=== PATIENT | male | born 1960 | race Caucasian/White ===

== ENCOUNTER 2021-04-04 10:52 | Inpatient (IN) | payer OTHER, SELFPAY ==
[2021-04-04] VITALS (15 sets, daily range): BP systolic 96–124; BP diastolic 68–77; PULSE 69–91; RESP 16–18; TEMP 36.4–36.5; O2SAT 97–100; BMI 24.3
--- NOTE | 2021-04-04 10:56 | XR_ITS ---
PROCEDURE: XR CHEST PORTABLE CLINICAL HISTORY: sob COMPARISON: No exams were available for comparison FINDINGS: Prior CABG. Normal heart size. There is focal increased density in the right midlung laterally. This is well-circumscribed and could represent a mass or an area of pneumonia as well something upon the patient. This measures approximately 5 cm. No acute bony abnormalities. IMPRESSION: Possible right midlung mass versus focal area of consolidation. CT may provide further evaluation. Dictated by: Iraj Cm MD 04/04/2021 11:54 Iraj Cm MD in [place] 04/04/2021 11:54
[2021-04-04 11:07] LABS: Coronavirus 19, PCR Not Detected (NotDetected); Influenza A, PCR Not Detected (NotDetected); Influenza B, PCR Not Detected (NotDetected)
[2021-04-04 11:33] LABS: Chloride 101 mmol/L (98-107); Sodium 137 mmol/L (136-145)
[2021-04-04 11:34] LABS: Potassium 3.9 mmoL/L (3.5-5.1)
[2021-04-04 11:36] LABS: Alanine Aminotransferase 48 U/L (12-78); Alkaline Phosphatase 101 U/L (38-126); Aspartate Amino Transferase 137 U/L (17-59); Bilirubin,Total 0.9 mg/dl (0.2-1.3); Blood Urea Nitrogen 25 mg/dl (9-20); Creatinine Clearance Estimated 35 mL/min (50-200); Estimated Glomerular Filt Rate 28 ml/min (>60); GFR (African American) 33 ML/MIN (>60)
[2021-04-04 11:37] LABS: Albumin Level 3.7 g/dl (3.5-5.0); Anion Gap 16.9 mEq/L (5-15); Calcium 9.2 mg/dl (8.4-10.2); Carbon Dioxide 23 mmol/L (22.0-30.0); Globulin 3.8 g/dL (1.3-3.2); Glucose 173 mg/dl (74-100); Total Protein,Serum 7.5 g/dl (6.3-8.2)
[2021-04-04 11:42] LABS: Basophils # 0.1 K/mm3 (0-0.2); Basophils % 0.7 % (0.1-2.0); Eosinophils # 0.1 K/mm3 (0.0-0.4); Eosinophils % 0.4 % (0.1-12.0); Hematocrit 46.8 % (42.0-52.0); Hemoglobin 14.9 g/dL (14.1-18.0); Lymphocytes # 0.4 K/mm3 (0.7-4.5); Mean Corpuscular HGB Conc 31.8 g/dL (31.8-35.4); Mean Corpuscular Hemoglobin 28.6 pg (27.0-31.2); Mean Platelet Volume 8.7 fl (7.4-10.4); Monocytes # 0.5 K/mm3 (0.1-1.0); Monocytes % 2.5 % (1.7-9.3); Neutrophils # 18.9 K/mm3 (1.8-7.8); Neutrophils % 94.4 % (37.0-80.0); Platelet Count 242 K/mm3 (142-424); Red Cell Distribution Width 14.2 % (11.5-17.5)
[2021-04-04 11:44] LABS: MANUAL DIFFERENTIAL MANUAL DIFFERENTIAL (MANUAL DIFF)
[2021-04-04 11:52] LABS: Hypochromasia 2+; Lymphocytes % 2 % (10-50); Monocytes % 2 % (2-9); Neutrophils % 96 % (42-76); Platelet Estimate Normal; Total Cells Counted 100
--- NOTE | 2021-04-04 11:59 | CT_ITS ---
PROCEDURE INFORMATION: Exam: CT Chest Without Contrast; Diagnostic Exam date and time: 04/04/2021 11:59 AM Age: 60 years old Clinical indication: Cough; Prior surgery; Surgery date: 6+ months; Surgery type: Cabg; Additional info: Consolidation vs mass TECHNIQUE: Imaging protocol: Diagnostic computed tomography of the chest without contrast. Radiation optimization: All CT scans at this facility use at least one of these dose optimization techniques: automated exposure control; mA and/or kV adjustment per patient size (includes targeted exams where dose is matched to clinical indication); or iterative reconstruction. COMPARISON: CR XR CHEST PORTABLE 04/04/2021 11:17 AM FINDINGS: Lungs: Calcified granuloma within the lingula. Calcified granuloma superior segment left lung base. Pleural spaces: Subtle airspace disease posterior segment right upper lobe adjacent to the major fissure likely atelectasis. Heart: Unremarkable. No cardiomegaly. No pericardial effusion. Aorta: Calcification of the aorta. Lymph nodes: Unremarkable. No enlarged lymph nodes. Liver: Severe fatty infiltration of the liver. Gallbladder and bile ducts: Surgical clips are present in the region of the gallbladder fossa. Kidneys and ureters: No renal calcifications, hydronephrosis, or hydroureter. Stomach: Fluid-filled stomach. Bones/joints: prior sternotomy. Degenerative changes are present within the spine. Soft tissues: Unremarkable. IMPRESSION: 1. Severe fatty infiltration of the liver. 2. No renal calcifications, hydronephrosis, or hydroureter. 3. Subtle airspace disease posterior segment right upper lobe adjacent to the major fissure likely atelectasis. Lungs are otherwise well aerated.
--- NOTE | 2021-04-04 12:06 | HMH.EDGENADL ---
ED Disposition Clinical Impression: Sepsis Qualifiers: Sepsis type: sepsis due to unspecified organism Sepsis acute organ dysfunction status: with acute organ dysfunction Severe sepsis acute organ dysfunction type: acute renal failure Acute renal failure type: unspecified Severe sepsis shock status: without septic shock Qualified Code(s): A41.9 - Sepsis, unspecified organism; R65.20 - Severe sepsis without septic shock; N17.9 - Acute kidney failure, unspecified UTI (urinary tract infection) Qualifiers: Urinary tract infection type: acute pyelonephritis Qualified Code(s): N10 - Acute pyelonephritis Disposition: Admitted As Inpatient Condition on Discharge: Fair Instructions: DI for Diarrhea and Traveler's Diarrhea -- Adult, DI for Diarrhea and Traveler's Diarrhea -- Child, DI for Nausea -- Adult, DI for Nausea -- Child Referrals: Provider,Referral, MD [Primary Care Provider] - Time of Disposition: 16:11 - Critical Care Critical Care Time: No Attestation: On 04/04/21, the high probability of a clinically significant, sudden or life threatening deterioration of the following system(s) required my full and direct attention, intervention and personal management. The time I documented below is in addition to time spent performing reported procedures but includes the following listed in this critical care notation. Medical Decision Making - Medical Records Medical records reviewed: Yes: I reviewed the patient's medical records. - [place]umar Inquiry Pt receiving controlled substance: No Vital Signs: 04/04/21 10:53 04/04/21 11:31 04/04/21 12:00 Temperature 97.5 F L Temperature Source Oral Pulse Rate 80 83 Pulse Rate [Left Radial] 91 H Respiratory Rate 18 Blood Pressure 100/71 L 96/70 L Blood Pressure [Right Arm] 104/69 L Blood Pressure Mean 79 75 Blood Pressure Mean [Right Arm] 80 02 Sat by Pulse Oximetry 99 99 99 Oxygen Delivery Method Room Air 04/04/21 12:30 04/04/21 13:00 04/04/21 13:30 Temperature Temperature Source Pulse Rate 73 Pulse Rate [Left Radial] Respiratory Rate 16 16 16 Blood Pressure 96/68 L 101/70 L 111/75 Blood Pressure [Right Arm] Blood Pressure Mean 76 78 83 Blood Pressure Mean [Right Arm] 02 Sat by Pulse Oximetry Oxygen Delivery Method 04/04/21 14:00 04/04/21 14:30 04/04/21 15:00 Temperature Temperature Source Pulse Rate 74 Pulse Rate [Left Radial] Respiratory Rate 16 16 16 Blood Pressure 108/77 L 115/70 117/74 Blood Pressure [Right Arm] Blood Pressure Mean 85 79 82 Blood Pressure Mean [Right Arm] 02 Sat by Pulse Oximetry Oxygen Delivery Method - Lab Data Lab results reviewed: Yes: I reviewed the patient's lab results. Lab Results 04/04/21 11:00: SARS-CoV-2 (PCR) Not detected, Influenza A Untype (PCR) Not detected, Influenza Type B (PCR) Not detected 04/04/21 11:20: WBC 20.0 H, RBC 5.20, Hgb 14.9, Hct 46.8, MCV 90.0, MCH 28.6, MCHC 31.8, RDW 14.2, Plt Count 242, MPV 8.7, Neut % (Auto) 94.4 H, Lymph % (Auto) 2.0 L, [place] % (Auto) 2.5, Eos % (Auto) 0.4, Baso % (Auto) 0.7, Neut # (Auto) 18.9 H, Lymph # (Auto) 0.4 L, [place] # (Auto) 0.5, Eos # (Auto) 0.1, Baso # (Auto) 0.1, Total Counted 100, Neutrophils % (Manual) 96 H, Lymphocytes % (Manual) 2 L, Monocytes % (Manual) 2, Platelet Estimate Normal, Hypochromasia 2+ 04/04/21 11:20: Sodium 137, Potassium 3.9, Chloride 101, Carbon Dioxide 23, Anion Gap 16.9 H, BUN 25 H, Creatinine 2.40 H, Estimated Creat Clear 35, Estimated GFR 28 L, Est GFR ( Amer) 33 L, Glucose 173 H, Calcium 9.2, Total Bilirubin 0.9, AST 137 H, ALT 48, Alkaline Phosphatase 101, Total Protein 7.5, Albumin 3.7, Globulin 3.8 H, Albumin/Globulin Ratio 1.0 L 04/04/21 12:45: Lactate 2.4 H 04/04/21 14:08: Urine Color Brown, Urine Appearance Turbid, Urine pH 5.5, Ur Specific [place] >= 1.030, Urine Protein 3+, Urine Glucose (UA) Negative, Urine Ketones Trace, Urine Blood 3+, Urine Nitrate Positive, Urine Bilirubin 2+ A
--- NOTE | 2021-04-04 12:43 | PC.NURSE ---
pt back from rad
[2021-04-04 13:06] LABS: Lactic Acid 2.4 mmol/L (0.7-2.1)
[2021-04-04 14:10] LABS: Microscopic, Urine URINE MICROSCOPIC (MICROSCOPIC)
[2021-04-04 14:15] LABS: Appearance,Urine TURBID (Clear); Blood, Urine 3+ (Negative); Color,Urine BROWN (Yellow); Glucose,Urine (UA) Negative (Negative); Ketones,Urine TRACE (Negative); Leukocyte Esterase,Urine 2+ (Negative); Nitrate,Urine POSITIVE (Negative); PH,Urine 5.5 (5.0-8.5); Protein,Urine 3+ (Negative); Specific Gravity, Urine >= 1.030 (1.005-1.030)
[2021-04-04 14:47] LABS: Bacteria,Urine 2+ /lpf; Bilirubin,Urine 2+ (Negative); RBC,Urine TNTC #/hpf (0-3); WBC,Urine 20-50 #/hpf (0-3)
--- NOTE | 2021-04-04 15:53 | P.CONPHA_ITS ---
- Pharmacy Consult Date: 04/04/21 Time: 15:54 Referring provider: DR. MERINO Reason for Consult:: VANCOMYCIN DOSING Allergies and ADEs:: Allergies Allergy/AdvReac Type Severity Reaction Status Date / Time No Known Allergies Allergy Verified 04/04/21 11:15 Home Medications:: Home Medications Medication Instructions Recorded Confirmed Type No Known Home Medications 04/04/21 04/04/21 History Height: 1.78 m Weight: 77.111 kg Laboratory Results:: Laboratory Results - last 24 hr 04/04/21 11:00: SARS-CoV-2 (PCR) Not detected, Influenza A Untype (PCR) Not detected, Influenza Type B (PCR) Not detected 04/04/21 11:20: WBC 20.0 H, RBC 5.20, Hgb 14.9, Hct 46.8, MCV 90.0, MCH 28.6, MCHC 31.8, RDW 14.2, Plt Count 242, MPV 8.7, Neut % (Auto) 94.4 H, Lymph % (Auto) 2.0 L, [place] % (Auto) 2.5, Eos % (Auto) 0.4, Baso % (Auto) 0.7, Neut # (Auto) 18.9 H, Lymph # (Auto) 0.4 L, [place] # (Auto) 0.5, Eos # (Auto) 0.1, Baso # (Auto) 0.1, Total Counted 100, Neutrophils % (Manual) 96 H, Lymphocytes % (Manual) 2 L, Monocytes % (Manual) 2, Platelet Estimate Normal, Hypochromasia 2+ 04/04/21 11:20: Sodium 137, Potassium 3.9, Chloride 101, Carbon Dioxide 23, Anion Gap 16.9 H, BUN 25 H, Creatinine 2.40 H, Estimated Creat Clear 35, Estimated GFR 28 L, Est GFR ( Amer) 33 L, Glucose 173 H, Calcium 9.2, Total Bilirubin 0.9, AST 137 H, ALT 48, Alkaline Phosphatase 101, Total Protein 7.5, Albumin 3.7, Globulin 3.8 H, Albumin/Globulin Ratio 1.0 L 04/04/21 12:45: Lactate 2.4 H 04/04/21 14:08: Urine Color Brown, Urine Appearance Turbid, Urine pH 5.5, Ur Specific [place] >= 1.030, Urine Protein 3+, Urine Glucose (UA) Negative, Urine Ketones Trace, Urine Blood 3+, Urine Nitrate Positive, Urine Bilirubin 2+ A, Urine Urobilinogen 2.0, Ur Leukocyte Esterase 2+ A, Urine RBC Tntc, Urine WBC 20-50, Ur Squamous Epith Cells None, Urine Bacteria 2+ Assessment and Plan - Assessment and plan all Dx Assessment and Plan for all problems:: Pharmacokinetic dosing service Objective: Patient: Floor: Age: 60 yo Serum creatinine: 2.40 mg/dL Height: 70.1 Inches Weight (kg): 77.1 Assessment: IBW (kg): 73.23 Dosing wt(kg): 77.1 Estimated Creatinine clearance (ml/min): 33.5 CRCL method: Cockcroft and Gault using ibw(default). Drug selected: Vancomycin Loading dose (mg): Vd (liters): 54.0 (factor used: 0.7 L/kg) Santos (hr-1): 0.032 Half life (hrs): 21.66 CLvanco=?? 1.728 L/hr Recommended dose: 1000 mg Interval: 24 hrs Infusion time (hrs): 2.0 Predicted peak (mcg/mL): 33.5 Predicted trough (mcg/mL): 16.57 Total body weight is being used for vancomycin dosing. Recommendations: Give Vancomycin 1000 mg q 24 hrs with an expected Cpeak of 33.5 mcg/ml and an expected Ctrough of 16.57 mcg/ml AUC 0-24 /EVAN Data: EVAN 0.5 mcg/mL:?? AUC/EVAN:? 1157.4 EVAN 1.0 mcg/mL:?? AUC/EVAN:? 578.7 --------- EVAN 1.5 mcg/mL:?? AUC/EVAN:? 385.8 EVAN 2.0 mcg/mL:?? AUC/EVAN:? 289.4 Thank you for the consult, will continue to follow. -FLAKO JOVEL, MAXIMED
--- NOTE | 2021-04-04 16:12 | PC.NURSE ---
DR MERINO SPOKE WITH DR WELLS FOR ADMISSION
--- NOTE | 2021-04-04 16:23 | PC.NURSE ---
HOUSE CALLED FOR BED
[2021-04-04 16:53] LABS: Reflex Lactic Add Lactic Reflex
--- NOTE | 2021-04-04 17:11 | PC.NURSE ---
Report called to Deepti KNOWLES
[2021-04-04 18:21] LABS: Lactic Acid Follow Up (RFLX 1) 0.9 mmol/L (0.7-2.1)
[2021-04-05] VITALS: BP 101/70; PULSE 75; RESP 16; TEMP 36.9; O2SAT 98
[2021-04-05 04:00] VITALS: BP 106/65; PULSE 77; RESP 18; TEMP 36.6; O2SAT 99
[2021-04-05 05:33] VITALS: BMI 29.7
--- NOTE | 2021-04-05 07:21 | HMH.HP ---
*Admission Date: 04/04/21 *Chief complaint: Weakness *History of present illness: 60-year-old male presented the hospital with 2 days of generalized weakness with some urinary hesitancy. Patient was found to have urinary tract infection and symptoms consistent with sepsis. He received sepsis bolus in the ER and has been admitted on antibiotics and IV fluids. This morning he reports he is feeling better. He does report urine has been rather dark. He has felt hot and has had chills but was unable to document any fevers [facility] History I have reviewed the patient's past medical history: Yes Medical History: Reports:: Congestive Heart Failure, Hypertension, Myocardial Infarction Denies:: Cancer, Diabetes Mellitus Type 1, Diabetes Mellitus Type 2, MRSA *Have you ever received a pneumonia vaccine?: No *Have you received a flu vaccine this season?: No Other Surgeries: Yes: Cholecystectomy Amputation: No Fractures: No - *Social History Last grade of school completed: 11th or 12th Smoking Status: Current every day smoker Tobacco Type: cigarettes # Packs/Day (cigarettes): 1 Alcohol Intake: former *Occupational Status:: employed Household Members: friend(s) *Travel in the last 8 weeks: None Family Hx:: Cancer, Diabetes Review of Systems - Review of Systems Review of systems:: pertinent systems reviewed and negative unless documented below Meds Home Medications Medication Instructions Recorded Confirmed Type No Known Home Medications 04/04/21 04/04/21 History Allergies Allergy/AdvReac Type Severity Reaction Status Date / Time No Known Allergies Allergy Verified 04/04/21 11:15 Exam Vital signs and Labs for Last 24 Hours: Temp Pulse Resp BP Pulse Ox 97.8 F 77 18 106/65 L 99 04/05/21 04:00 04/05/21 04:00 04/05/21 04:00 04/05/21 04:00 04/05/21 04:00 Laboratory Results - last 24 hr 04/04/21 11:00: SARS-CoV-2 (PCR) Not detected, Influenza A Untype (PCR) Not detected, Influenza Type B (PCR) Not detected 04/04/21 11:20: WBC 20.0 H, RBC 5.20, Hgb 14.9, Hct 46.8, MCV 90.0, MCH 28.6, MCHC 31.8, RDW 14.2, Plt Count 242, MPV 8.7, Neut % (Auto) 94.4 H, Lymph % (Auto) 2.0 L, [place] % (Auto) 2.5, Eos % (Auto) 0.4, Baso % (Auto) 0.7, Neut # (Auto) 18.9 H, Lymph # (Auto) 0.4 L, [place] # (Auto) 0.5, Eos # (Auto) 0.1, Baso # (Auto) 0.1, Total Counted 100, Neutrophils % (Manual) 96 H, Lymphocytes % (Manual) 2 L, Monocytes % (Manual) 2, Platelet Estimate Normal, Hypochromasia 2+ 04/04/21 11:20: Sodium 137, Potassium 3.9, Chloride 101, Carbon Dioxide 23, Anion Gap 16.9 H, BUN 25 H, Creatinine 2.40 H, Estimated Creat Clear 35, Estimated GFR 28 L, Est GFR ( Amer) 33 L, Glucose 173 H, Calcium 9.2, Total Bilirubin 0.9, AST 137 H, ALT 48, Alkaline Phosphatase 101, Total Protein 7.5, Albumin 3.7, Globulin 3.8 H, Albumin/Globulin Ratio 1.0 L 04/04/21 12:45: Lactate 2.4 H 04/04/21 14:08: Urine Color Brown, Urine Appearance Turbid, Urine pH 5.5, Ur Specific [place] >= 1.030, Urine Protein 3+, Urine Glucose (UA) Negative, Urine Ketones Trace, Urine Blood 3+, Urine Nitrate Positive, Urine Bilirubin 2+ A, Urine Urobilinogen 2.0, Ur Leukocyte Esterase 2+ A, Urine RBC Tntc, Urine WBC 20-50, Ur Squamous Epith Cells None, Urine Bacteria 2+ 04/04/21 17:25: Lactate 0.9 I & O for Last 24 hours: Intake & Output 04/02/21 04/03/21 04/04/21 04/05/21 11:59 11:59 11:59 11:59 Intake Total 1920 / 1920 Output Total 200 / 200 Balance 1720 / 1720 Weight 170 lb 208 lb 1.6 oz - Constitutional no acute distress - *Routine HEENT Exam Head: Present: normocephalic Eye: Present: EOMI, PERRL ENT: Present: mucous membranes moist - *Routine Neck Exam Present: supple. Absent: lymphadenopathy - *Routine Respiratory Exam Present: CTA bilaterally - *Routine Cardiovascular Exam Present: RRR - *Routine Abdominal Exam Present: soft, normoactive bowel sounds. Absent: tenderness - *Routine Rectal Exam Rectal:: deferred - *Routi
--- NOTE | 2021-04-05 07:34 | HMH.PHAINT ---
MEDICATION RECONCILIATION COMPLETE. PT TAKES NO HOME MEDICATIONS PER PATIENT QUESTION AND PREVIOUS DISCHARGE PAPERWORK
[2021-04-05 07:57] LABS: Eosinophils # 0.1 K/mm3 (0.0-0.4); Monocytes # 0.7 K/mm3 (0.1-1.0)
--- NOTE | 2021-04-05 07:57 | HMH.PHAVTE ---
[facility] Pharmacy VTE Monitoring - Patient Demographics Admission date: 04/04/21 Report Date: 04/05/21 Time: 07:57 Allergies/Adverse Reactions: Patient Allergies No Known Allergies Allergy (Verified 04/04/21 11:15) Height: 1.78 m Weight: 94.393 kg Patient Problems: Current Active Problems Sepsis (Acute) UTI (urinary tract infection) (Acute) - VTE Risk Labs: VTE Related Lab Results Hgb 14.9 g/dL (14.1-18.0) 04/04/21 11:20 Hct 46.8 % (42.0-52.0) 04/04/21 11:20 Plt Count 242 K/mm3 (142-424) 04/04/21 11:20 BUN 25 mg/dl (9-20) H 04/04/21 11:20 Creatinine 2.40 mg/dl (0.66-1.25) H 04/04/21 11:20 Estimated Creat Clear 35 mL/min (50-200) 04/04/21 11:20 Was VTE Risk Assessment Performed: Yes VTE Risk Level: Low Risk Clinical Trial Participant: No - Prophylaxis VTE Prophylaxis Ordered?: Yes Types of VTE Prophylaxis: TEDS Knee High, Pharmacological Pharmacologic Type: Heparin
[2021-04-05 08:00] VITALS: BP 111/72; PULSE 79; RESP 22; TEMP 36.4; O2SAT 98
[2021-04-05 08:06] LABS: Basophils % 0.3 % (0.1-2.0); Eosinophils % 0.6 % (0.1-12.0); Hematocrit 40.6 % (42.0-52.0); Lymphocytes # 0.9 K/mm3 (0.7-4.5); Mean Corpuscular HGB Conc 32.3 g/dL (31.8-35.4); Mean Corpuscular Hemoglobin 28.4 pg (27.0-31.2); Mean Corpuscular Volume 87.8 fl (80-94); Mean Platelet Volume 8.6 fl (7.4-10.4); Monocytes % 6.2 % (1.7-9.3); Neutrophils # 9.8 K/mm3 (1.8-7.8); Neutrophils % 84.9 % (37.0-80.0); Platelet Count 195 K/mm3 (142-424); Red Blood Count 4.62 M/mm3 (4.60-6.20); White Blood Count 11.5 K/mm3 (4.8-10.8)
[2021-04-05 08:20] LABS: Hemoglobin 13.1 g/dL (14.1-18.0)
[2021-04-05 08:35] LABS: Alanine Aminotransferase 105 U/L (12-78); Albumin Level 2.7 g/dl (3.5-5.0); Albumin/Globulin Ratio 0.9 (1.1-1.8); Alkaline Phosphatase 77 U/L (38-126); Anion Gap 7.5 mEq/L (5-15); Aspartate Amino Transferase 196 U/L (17-59); Bilirubin,Total 0.5 mg/dl (0.2-1.3); Blood Urea Nitrogen 24 mg/dl (9-20); Calcium 8.5 mg/dl (8.4-10.2); Carbon Dioxide 27 mmol/L (22.0-30.0); Chloride 107 mmol/L (98-107); Creatinine Clearance Estimated 80 mL/min (50-200); Estimated Glomerular Filt Rate 56 ml/min (>60); GFR (African American) 68 ML/MIN (>60); Glucose 89 mg/dl (74-100); Potassium 3.5 mmoL/L (3.5-5.1); Sodium 138 mmol/L (136-145); Total Protein,Serum 5.7 g/dl (6.3-8.2)
[2021-04-05 15:24] VITALS: BP 134/78; PULSE 82; RESP 22; TEMP 36.6; O2SAT 97
--- NOTE | 2021-04-05 16:35 | PC.NURSE ---
Patient is non tele and on room air. Patient is up ad-rolando. Patient had c/o lower back pain, see aug. Bed in lowest position and call light in reach. Will continue to monitor.
[2021-04-05 20:00] VITALS: BP 125/77; PULSE 68; RESP 22; TEMP 36.5; O2SAT 97
[2021-04-05 23:27] VITALS: BP 145/88; PULSE 79; RESP 20; TEMP 36.5; O2SAT 99
[2021-04-06 03:59] VITALS: BP 130/79; PULSE 77; RESP 20; TEMP 36.5; O2SAT 98
[2021-04-06 04:54] VITALS: BMI 29.7
--- NOTE | 2021-04-06 05:41 | PC.NURSE ---
Shift summary. Pt reports having blood in his stool 1x t/o night. Pt states it was bright red. When asked how much blood was passed, pt states it filled up my tissue. Pt was encouraged to notify RN of BM and to not flush toilet. No BM reported to staf thus far. VSS. Call light within reach. Will continue to monitor.
--- NOTE | 2021-04-06 07:05 | HMH.ACPN2 ---
Internal Medicine - PN: Subj *Date: 04/06/21 *Time: 07:05 Interval history: Patient reports feeling better but still having discomfort in the lower abdomen and proximal thighs bilaterally. Patient also apparently passed some bright red blood with bowel movement yesterday. This was unwitnessed and he did inform the nurses. He has been asked to notify staff of any further blood in his bowel movements. Patient states this happened at home prior to coming to the hospital. Patient has never had a colonoscopy Exam Vital signs and Labs for Last 24 Hours: Temp Pulse Resp BP Pulse Ox 97.7 F 77 20 130/79 98 04/06/21 03:59 04/06/21 03:59 04/06/21 03:59 04/06/21 03:59 04/06/21 03:59 Laboratory Results - last 24 hr 04/04/21 14:08: Urine Color Brown, Urine Appearance Turbid, Urine pH 5.5, Ur Specific [place] >= 1.030, Urine Protein 3+, Urine Glucose (UA) Negative, Urine Ketones Trace, Urine Blood 3+, Urine Nitrate Positive, Urine Bilirubin 2+ A, Urine Urobilinogen 2.0, Ur Leukocyte Esterase 2+ A, Urine RBC Tntc, Urine WBC 20-50, Ur Squamous Epith Cells None, Urine Bacteria 2+ 04/05/21 07:20: WBC 11.5 H D, RBC 4.62, Hgb 13.1 L D, Hct 40.6 L, MCV 87.8, MCH 28.4, MCHC 32.3, RDW 14.0, Plt Count 195, MPV 8.6, Neut % (Auto) 84.9 H, Lymph % (Auto) 8.0 L, [place] % (Auto) 6.2, Eos % (Auto) 0.6, Baso % (Auto) 0.3, Neut # (Auto) 9.8 H, Lymph # (Auto) 0.9, [place] # (Auto) 0.7, Eos # (Auto) 0.1, Baso # (Auto) 0.0 04/05/21 07:20: Sodium 138, Potassium 3.5, Chloride 107, Carbon Dioxide 27, Anion Gap 7.5, BUN 24 H, Creatinine 1.30 H D, Estimated Creat Clear 80, Estimated GFR 56 L, Est GFR ( Amer) 68 D, Glucose 89 D, Calcium 8.5, Total Bilirubin 0.5, AST 196 H D, ALT 105 H D, Alkaline Phosphatase 77, Total Protein 5.7 L, Albumin 2.7 L D, Globulin 3.0, Albumin/Globulin Ratio 0.9 L I & O for Last 24 hours: Intake & Output 04/03/21 04/04/21 04/05/21 04/06/21 11:59 11:59 11:59 11:59 Intake Total 2640 / 2640 660 / 660 Output Total 1100 / 1100 1500 / 1500 Balance 1540 / 1540 -840 / -840 Weight 170 lb 208 lb 1.6 oz 207 lb 8 oz Microbiology Reports for the Last 24 Hours: Microbiology 04/04/21 12:45 Blood Blood Culture - Preliminary 04/04/21 14:08 Urine,Clean Catch Urine Culture - Preliminary Gram Negative Rods Narrative: Patient looks comfortable. Lungs are clear. Heart has a regular rate and rhythm. Abdomen is soft and nontender. Urine culture is growing gram-negative leno 1 of 4 blood cultures is growing a gram-positive cocci. Assessment and Plan (1) Sepsis Status: Acute Qualifiers: Sepsis type: sepsis due to unspecified organism Sepsis acute organ dysfunction status: with acute organ dysfunction Severe sepsis acute organ dysfunction type: acute renal failure Acute renal failure type: unspecified Severe sepsis shock status: without septic shock Qualified Code(s): A41.9 - Sepsis, unspecified organism; R65.20 - Severe sepsis without septic shock; N17.9 - Acute kidney failure, unspecified Category: Medical Code(s): A41.9 - Sepsis, unspecified organism (2) UTI (urinary tract infection) Status: Acute Qualifiers: Urinary tract infection type: acute pyelonephritis Qualified Code(s): N10 - Acute pyelonephritis Category: Medical Code(s): N39.0 - Urinary tract infection, site not specified (3) Hematochezia Status: Acute Category: Medical Code(s): K92.1 - Melena - Assessment and plan all Dx Assessment and Plan for all problems:: 1. Patient is improving. Continue IV cefepime while awaiting for urine culture. Patient has been encouraged to ambulate. 2. Based on patient's clinical presentation and abnormal urine culture it is highly likely that the abnormal blood culture is a contaminant 3. Notify staff of any further blood in his stools. Await CBC this morning
[2021-04-06 07:14] LABS: Basophils % 0.3 % (0.1-2.0); Eosinophils # 0.1 K/mm3 (0.0-0.4); Eosinophils % 0.8 % (0.1-12.0); Hematocrit 39.8 % (42.0-52.0); Hemoglobin 13.1 g/dL (14.1-18.0); Lymphocytes # 1.1 K/mm3 (0.7-4.5); Lymphocytes % 11.5 % (10-50); Mean Corpuscular HGB Conc 32.9 g/dL (31.8-35.4); Mean Corpuscular Hemoglobin 28.6 pg (27.0-31.2); Mean Corpuscular Volume 86.9 fl (80-94); Mean Platelet Volume 8.7 fl (7.4-10.4); Monocytes # 0.7 K/mm3 (0.1-1.0); Neutrophils # 7.6 K/mm3 (1.8-7.8); Neutrophils % 80.4 % (37.0-80.0); Platelet Count 252 K/mm3 (142-424); Red Blood Count 4.58 M/mm3 (4.60-6.20); Red Cell Distribution Width 14.1 % (11.5-17.5); White Blood Count 9.5 K/mm3 (4.8-10.8)
[2021-04-06 07:24] LABS: Chloride 106 mmol/L (98-107); Potassium 3.7 mmoL/L (3.5-5.1); Sodium 140 mmol/L (136-145)
[2021-04-06 07:27] LABS: Anion Gap 8.7 mEq/L (5-15); Blood Urea Nitrogen 18 mg/dl (9-20); Carbon Dioxide 29 mmol/L (22.0-30.0); Creatinine Clearance Estimated 103 mL/min (50-200); Estimated Glomerular Filt Rate 76 ml/min (>60); GFR (African American) 92 ML/MIN (>60); Glucose 102 mg/dl (74-100)
[2021-04-06 07:57] VITALS: BP 137/88; PULSE 81; RESP 18; TEMP 36.7; O2SAT 96
[2021-04-06 15:58] VITALS: BP 145/94; PULSE 74; RESP 18; TEMP 36.5; O2SAT 98
--- NOTE | 2021-04-06 17:15 | HMH.DCSUM ---
General - General Admission date:: 04/04/21 Discharge date: 04/06/21 HPI HPI: 60-year-old male presented the hospital with 2 days of generalized weakness with some urinary hesitancy. Patient was found to have urinary tract infection and symptoms consistent with sepsis. He received sepsis bolus in the ER and has been admitted on antibiotics and IV fluids. This morning he reports he is feeling better. He does report urine has been rather dark. He has felt hot and has had chills but was unable to document any fevers Hospital Course Hospital Course: Patient was admitted for treatment of UTI and suspected sepsis. Patient was started on cefepime and vancomycin initially. Patient had associated acute kidney injury. Acute kidney injury resolved with administration of IV fluids. Patient was continued on cefepime. Urine culture returned E. coli that was sensitive to multiple antibiotics. Blood cultures showed no growth except for contaminant of a single aerobic bottle. Patient was discharged home on April 06 with prescription for Levaquin. Patient will follow up in my office in 1 week. Patient had at least one episode of bright red blood per rectum during hospitalization. Patient has never had a colonoscopy. At follow-up referral for colonoscopy will be arranged Objective Vital signs: Temp Pulse Resp BP Pulse Ox 97.7 F 74 18 145/94 H 98 04/06/21 15:58 04/06/21 15:58 04/06/21 15:58 04/06/21 15:58 04/06/21 15:58 Results Labs on day of discharge: Labs from last 24 hours 04/06/21 04/06/21 06:34 06:34 WBC 9.5 RBC 4.58 L Hgb 13.1 L Hct 39.8 L MCV 86.9 MCH 28.6 MCHC 32.9 RDW 14.1 Plt Count 252 D MPV 8.7 Neut % (Auto) 80.4 H Lymph % (Auto) 11.5 [place] % (Auto) 7.0 Eos % (Auto) 0.8 Baso % (Auto) 0.3 Neut # (Auto) 7.6 Lymph # (Auto) 1.1 [place] # (Auto) 0.7 Eos # (Auto) 0.1 Baso # (Auto) 0.0 Sodium 140 Potassium 3.7 Chloride 106 Carbon Dioxide 29 Anion Gap 8.7 BUN 18 Creatinine 1.00 D Estimated Creat Clear 103 Estimated GFR 76 Est GFR ( Amer) 92 D Glucose 102 H Calcium 9.0 Preliminary micro results at discharge 04/04/21 12:45 Blood Culture - Preliminary Blood NO GROWTH AFTER 48 HOURS 04/04/21 12:45 Blood Culture - Preliminary Blood DS: Diagnosis - Discharge Diagnosis (1) Sepsis Status: Acute (2) UTI (urinary tract infection) Status: Acute (3) Hematochezia Status: Acute (4) Acute kidney injury Status: Resolved Discharge Plan - Patient Discharge Instructions ACTIVITY: Continue current activity DIET: continue same diet Patient Instructions: Urinary Tract Infection, Sepsis - Follow up Plan Follow up with: Moris Mcdaniel MD [Staff Physician] - Disposition: Home, Self-Care Condition at discharge:: Improved Home Medications: Home Medications Medication Instructions Recorded Confirmed Type levoFLOXacin [Levaquin 500mg 500 mg PO DAILY #7 tab 04/06/21 Rx tab] Prescriptions/Medication Reconciliation: New levoFLOXacin [Levaquin 500mg tab] 500 mg PO DAILY #7 tab - Problem Reconciliation Problems Reviewed?: Yes
== END 2021-04-06 18:48 | disposition home or self-care (01) | DRG 872 ==
LOC: ER 16:12 → 2ND 04-05 07:42
PROVIDERS: Admitting Provider Family Medicine; Emergency Provider Family Medicine; Visit Provider Family Medicine
DX: A41.9 Sepsis, unspecified organism (principal); N17.9 Acute kidney failure, unspecified; N10 Acute pyelonephritis; K92.1 Melena; R65.20 Severe sepsis without septic shock; Z20.822 Contact with and (suspected) exposure to COVID-19; I11.0 Hypertensive heart disease with heart failure; I50.9 Heart failure, unspecified; I25.2 Old myocardial infarction; F17.210 Nicotine dependence, cigarettes, uncomplicated; B96.20 Unspecified Escherichia coli [E. coli] as the cause of diseases classified elsewhere
CPT/HCPCS: 36415; 71045; 71250; 80048; 80053; 81001; 83605; 85007; 85025; 87040; 87077; 87086; 87088; 87186; 96365; 96366; 96367; 99284; C9803; J3370; U0003; U0005